=== PATIENT | male | born 1965 | race African-American/Black ===

== ENCOUNTER 2019-08-20 11:23 | Emergency (ER) | payer SELFPAY ==
[2019-08-20 11:35] VITALS: BP 184/99
--- NOTE | 2019-08-20 11:36 | Event Note ---
ED Screening Note Date of service: 08/20/19 Time: 11:32 ED Screening Note: This is a 54 y.o. M. that presents to the ER with abdominal pain and constipation for 3 days. PMH of legally blind, HTN, encephalopathy, kidney insufficiency, CVA's, seizures, and DM2. This initial assessment/diagnostic orders/clinical plan/treatment(s) is/are subject to change based on patients health status, clinical progression and re- assessment by fellow clinical providers in the ED. Further treatment and workup at subsequent clinical providers discretion. Patient/guardian urged not to elope from the ED as their condition may be serious if not clinically assessed and managed. Initial orders include: Labs
[2019-08-20 12:12] LABS: Basophils % (Auto) 0.6 % (0.0-1.8); Eosinophils # (Auto) 0.1 K/mm3 (0.0-0.4); Eosinophils % (Auto) 1.1 % (0.0-4.3); Hematocrit 35.3 % (35.5-45.6); Hemoglobin 11.7 gm/dl (11.8-15.2); Lymphocytes # (Auto) 1.7 K/mm3 (1.2-5.4); Lymphocytes % (Auto) 20.3 % (13.4-35.0); Mean Corpuscular HGB Conc 33 % (32-34); Mean Corpuscular Volume 73 fl (84-94); Monocytes # (Auto) 0.6 K/mm3 (0.0-0.8); Monocytes % (Auto) 7.8 % (0.0-7.3); Platelet Count 188 K/mm3 (140-440); Red Blood Count 4.86 M/mm3 (3.65-5.03); Red Cell Distribution Width 14.1 % (13.2-15.2)
[2019-08-20 12:21] LABS: Albumin 4.1 g/dL (3.9-5); Calcium 9.6 mg/dL (8.4-10.2)
[2019-08-20 12:43] LABS: Bilirubin,Urine NEG (Negative); Blood,Urine SM (Negative); Color,Urine Straw (Yellow); Urobilinogen,Urine < 2.0 mg/dL (<2.0)
--- NOTE | 2019-08-20 12:48 | Cat Scan Report ---
CT OF THE ABDOMEN AND PELVIS WITHOUT CONTRAST INDICATION / CLINICAL INFORMATION: Diffuse abdominal pain with nausea and vomiting. No bowel movement for 3 days. TECHNIQUE: All CT scans at this location are performed using CT dose reduction for ALARA by means of automated e xposure control. COMPARISON: None available. FINDINGS: ABDOMEN: The liver, spleen, gallbladder, bile ducts, pancreas, adrenal glands, kidneys and bowel demo nstrate no significant abnormality. There is only a mild amount of stool throughout the colon without fecal impaction. There is no evidence of bowel obstruction, wall thickening or free air. There are moderate atherosclerotic calcifications involving the abdominal aorta and its branches with out aneurysm. No adenopathy is seen. The lung bases are clear. There is marked coronary artery calcif ication. PELVIS: The prostate gland is mildly enlarged. The distal ureters and urinary bladder are normal. A n ormal appendix is present and there is no evidence of diverticulitis. No abnormal mass or fluid colle ction is seen. I do not identify a hernia. A mild compression fracture of the T12 vertebral body appe ars old. IMPRESSION: 1. No acute intra-abdominal disease is identified. 2. Marked coronary artery calcification. Signer Name: Tristian Franklin MD Signed: 08/20/2019 12:44 PM Workstation Name: [id number]
--- NOTE | 2019-08-20 13:17 | Emergency Department Report ---
ED Abdominal Pain HPI - General Chief Complaint: Abdominal Pain Stated Complaint: HOT FLASHES/ABD PAIN Time Seen by Provider: 08/20/19 11:31 Source: patient Mode of arrival: Ambulatory Limitations: No Limitations - History of Present Illness Initial Comments: Patient is a 54-year-old [place] gentleman who is presenting with abdominal pain. Patient is has some sharp pains in which are colicky for the last several days. Family member states he has not had a bowel movement and 3 days which is not normal for him. Is also has some abdominal distention as well. She denies any episodes of nausea vomiting. Patient has no history of abdominal surgeries and has not had history of any abdominal obstructions. Has a past medical history of hypertension diabetes and he is also visually impaired. Severity scale (0 -10): 5 Quality: cramping Consistency: intermittent Improves With: nothing Worsens With: nothing Associated Symptoms: denies: nausea, vomiting, diarrhea, fever, chills, dysuria, hematemesis, hematochezia - Related Data Previous Rx's Medication Instructions Recorded Last Taken Type Dicyclomine [Bentyl] 20 mg PO QID #10 tablet 08/20/19 Unknown Rx Simethicone 125 mg PO BID #30 capsule 08/20/19 Unknown Rx Allergies Allergy/AdvReac Type Severity Reaction Status Date / Time No Known Allergies Allergy Verified 08/20/19 11:28 ED Review of Systems ROS: Stated complaint: HOT FLASHES/ABD PAIN Other details as noted in HPI Comment: All other systems reviewed and negative ED Past Medical Hx - Past Medical History Previous Medical History?: Yes Hx Hypertension: Yes Hx Diabetes: Yes Additional medical history: "brain lesion", blindness - Surgical History Past Surgical History?: No - Social History Smoking Status: Never Smoker Substance Use Type: None - Medications Home Medications: Home Medications Medication Instructions Recorded Confirmed Last Taken Type Dicyclomine [Bentyl] 20 mg PO QID #10 tablet 08/20/19 Unknown Rx Simethicone 125 mg PO BID #30 capsule 08/20/19 Unknown Rx ED Physical Exam - General Limitations: No Limitations General appearance: alert, in no apparent distress - Head Head exam: Present: atraumatic, normocephalic - Eye Eye exam: Present: normal appearance, PERRL, EOMI - ENT ENT exam: Present: mucous membranes moist - Neck Neck exam: Present: normal inspection - Respiratory Respiratory exam: Present: normal lung sounds bilaterally. Absent: respiratory distress, wheezes, rales, rhonchi - Cardiovascular Cardiovascular Exam: Present: regular rate, normal rhythm, normal heart sounds. Absent: systolic murmur, diastolic murmur, rubs, gallop - GI/Abdominal GI/Abdominal exam: Present: soft, distended, normal bowel sounds. Absent: t enderness, guarding, rebound, rigid - Rectal Rectal exam: Present: deferred - Extremities Exam Extremities exam: Present: normal inspection - Back Exam Back exam: Present: normal inspection - Neurological Exam Neurological exam: Present: alert, oriented X3 - Psychiatric Psychiatric exam: Present: normal affect, normal mood - Skin Skin exam: Present: warm, dry, intact, normal color. Absent: rash ED Course Vital Signs 08/20/19 08/20/19 11:29 12:08 Temperature 97.6 F Pulse Rate 103 H Respiratory 24 18 Rate Blood Pressure 184/99 O2 Sat by Pulse 100 100 Oximetry ED Medical Decision Making - Lab Data Result diagrams: 08/20/19 11:51 08/20/19 11:51 Lab Results 08/20/19 08/20/19 08/20/19 Range/Units 11:51 11:51 12:08 WBC 8.2 (4.5-11.0) K/mm3 RBC 4.86 (3.65-5.03) M/mm3 Hgb 11.7 L (11.8-15.2) gm/dl Hct 35.3 L (35.5-45.6) % MCV 73 L (84-94) fl MCH 24 L (28-32) pg MCHC 33 (32-34) % RDW 14.1 (13.2-15.2) % Plt Count 188 (140-440) K/mm3 Lymph % (Auto) 20.3 (13.4-35.0) % [place] % (Auto) 7.8 H (0.0-7.3) % Eos % (Auto) 1.1 (0.0-4.3) % Baso % (Auto) 0.6 (0.0-1.8) % Lymph # 1.7 (1.2-5.4) K/mm3 [place] # 0.6 (0.0-0.8) K/mm3 Eos # 0.1 (0.0-0.4) K/mm3 Baso # 0.0 (0.0-0.1) K/mm3 Seg Neutrophils % 70.2 H (40.0-70.0) % Seg Neutrophils # 5.7 (1.8-7.7) K/mm3 Sodium 143 (137-145) mmol/L Potassium 4.1 (3.6-5.0) mmol/L Chloride 106.6 (98-107) mmol/L Carbon Dioxide 22 (22-30) mmol/L Anion Gap 19 mmol/L BUN 33 H (9-20) mg/dL Creatinine 2.1 H (0.8-1.5) mg/dL Estimated GFR 33 ml/min BUN/Creatinine Ratio 16 % Glucose 176 H (75-100) mg/dL Calcium 9.6 (8.4-10.2) mg/dL Total Bilirubin 0.20 (0.1-1.2) mg/dL AST 24 (5-40) units/L ALT 24 (7-56) units/L Alkaline Phosphatase 123 (35-129) units/L Total Protein 8.7 H (6.3-8.2) g/dL Albumin 4.1 (3.9-5) g/dL Albumin/Globulin Ratio 0.9 % Lipase 99 H (13-60) units/L Urine Color Straw (Yellow) Urine Turbidity Clear (Clear) Urine pH 5.0 (5.0-7.0) Ur Specific [place] 1.013 (1.003-1.030) Urine Protein 30 mg/dl (Negative) mg/dL Urine Glucose (UA) 150 (Negative) mg/dL Urine Ketones Neg (Negative) mg/dL Urine Blood Sm (Negative) Urine Nitrite Neg (Negative) Urine Bilirubin Neg (Negative) Urine Urobilinogen < 2.0 (<2.0) mg/dL Ur Leukocyte Esterase Neg (Negative) Urine WBC (Auto) 0.0 (0.0-6.0) /HPF Urine RBC (Auto) 3.0 (0.0-6.0) /HPF - Radiology Data CT OF THE ABDOMEN AND PELVIS WITHOUT CONTRAST INDICATION / CLINICAL INFORMATION: Diffuse abdominal pain with nausea and vomiting. No bowel movement for 3 days. TECHNIQUE: All CT scans at this location are performed using CT dose reduction for ALARA by means of automated exposure control. COMPARISON: None available. FINDINGS: ABDOMEN: The liver, spleen, gallbladder, bile ducts, pancreas, adrenal glands, kidneys and bowel demonstrate no significant abnormality. There is only a mild amount of stool throughout the colon without fecal impaction. There is no evidence of bowel obstruction, wall thickening or free air. There are moderate atherosclerotic calcifications involving the abdominal aorta and its branches without aneurysm. No adenopathy is seen. The lung bases are clear. There is marked coronary artery calcification. PELVIS: The prostate gland is mildly enlarged. The distal ureters and urinary bladder are normal. A normal appendix is present and there is no evidence of diverticulitis. No abnormal mass or fluid collection is seen. I do not identify a hernia. A mild compression fracture of the T12 vertebral body appears old. IMPRESSION: 1. No acute intra-abdominal disease is identified. 2. Marked coronary artery calcification. Signer Name: Tristian Franklin MD Signed: 08/20/2019 12:44 PM Workstation Name: [id number] - Medical Decision Making Patient is differential diagnosis does include small bowel obstruction and volvulus. CT was ordered to rule the these processes out. Please see CT findings above. Patient pain likely secondary to some bowel spasm. Patient has a great deal of colonic air. Very little stool actually present. But there is no evidence of obstruction at this time. Patient will be discharged home with medications for symptomatic relief. Critical care attestation.: If time is entered above; I have spent that time in minutes in the direct care of this critically ill patient, excluding procedure time. ED Disposition Clinical Impression: Abdominal distension (gaseous) Disposition: DC-01 TO HOME OR SELFCARE Is pt being admited?: No Does the pt Need Aspirin: No Condition: Stable Instructions: Simethicone (By mouth), Abdominal Pain (ED) Referrals: [facility] [Provider Group] - 3-5 Days Time of Disposition: 13:17
== END 2019-08-20 13:44 | disposition home or self-care (01) ==
LOC: ED 11:23
DX: R14.1 Gas pain (principal); I10 Essential (primary) hypertension; E11.9 Type 2 diabetes mellitus without complications
CPT/HCPCS: 36415; 74176; 80053; 81001; 83690; 85025